=== PATIENT | male | born 1965 | race Caucasian/White ===

== ENCOUNTER 2022-10-26 14:42 | Inpatient (IN) ==
[2022-10-26] MEDS ORDERED: nitroGLYCERIN DRIP 25,000 MCG/250 ML BTL ONE (15:05)
[2022-10-26] MEDS ORDERED: Heparin 2 UNITS/ML 1000 mls 3,000 ML IV ONE (15:05)
[2022-10-26] MEDS ORDERED: Midazolam 5 mg/5 ml VIAL 1 mg/ml 5 ml VIAL (5 mg) ONE (15:05)
[2022-10-26] MEDS ORDERED: fentaNYL 100 mcg/2 ml 50 MCG/ML VIAL ONE (15:05)
[2022-10-26] MEDS ORDERED: Heparin 1,000 UNIT/ML 10 ml (10,000 UNITS) CATHLAB/DIALYSIS ONE (15:05)
[2022-10-26] MEDS ORDERED: VERAPAMIL 2.5 MG/ML 2 ML VIAL ** 5 mg/2 ml ONE (15:05)
[2022-10-26] MEDS ORDERED: Lidocaine 1% MPF 5 ML VIAL ONE (15:06)
[2022-10-26] MEDS ORDERED: Iohexol 350 (CONTRAST) 200 ML MDV IV ONE (15:06)
[2022-10-26 15:08] LABS: ABS Lymphocytes 1.3 10^3/uL (1.0-4.8); ABS Neutrophils 5.1 10^3/uL (1.5-7.6); ABS Nucleated RBC 0.01 10^3/ul; Eosinophil % 0.2 %; Hematocrit 42.9 % (38-53); Hemoglobin 15.2 g/dL (13.2-16.3); Lymphocyte % 17.5 %; Mean Corpuscular Hemoglobin 33.2 pg (27-33); Mean Corpuscular Hgb Conc 35.5 g/dL (31-36); Mean Corpuscular Volume 93.6 fL (80-97); Mean Platelet Volume 7.5 fL (7.5-11.2); Nucleated Red Blood Cells % 0.1 /100 WBC (0.0-0.4); Platelet Count 205 10^3/uL (150-450); Red Blood Count 4.59 10^6/uL (4.06-5.63); Red Cell Distribution Width 12.3 % (12-17); White Blood Count 7.5 10^3/uL (3.6-10.2)
[2022-10-26 15:21] LABS: INR 1.33 (0.88-1.18)
[2022-10-26 15:24] LABS: Albumin 4.6 g/dL (3.2-5.2); Albumin/Globulin Ratio 1.5 (1-3); Calcium 9.8 mg/dL (8.6-10.3); Creatinine, Serum 0.78 mg/dL (0.67-1.17); Globulin 3.1 g/dL (2-4); Potassium 3.8 mmol/L (3.5-5.0); Total Protein 7.7 g/dL (6.4-8.9); eGFR CKD-EPI 103.4 (>60)
[2022-10-26] MEDS ORDERED: Iohexol 350 (CONTRAST) 100 ML PAK IV ONE (15:54)
[2022-10-26] MEDS ORDERED: Eptifibatide IV (Load dose) 2 MG/ML 10 ml VIAL ONE ×2 (16:02→16:16)
[2022-10-26] MEDS ORDERED: Bivalirudin 250 MG VIAL ONE (16:02)
[2022-10-26 16:59] LABS: High Sensitivity Troponin 1 Hr 18815 pg/mL (<20)
[2022-10-26] MEDS ORDERED: Heparin DRIP 25,000 UNITS BAG 25,000 UNITS/500 ML BAG IV SCH (17:30)
[2022-10-26] MEDS ORDERED: NS 0.9% 1000 ml BAG 1,000 ML IV SCH (18:15)
[2022-10-26] MEDS: Heparin 5000 UNITS/ML 1 mL VIAL IV SCH (18:24)
[2022-10-27] MEDS: Heparin 5000 UNITS/ML 1 mL VIAL IV SCH (01:20)
[2022-10-27 06:18] LABS: ABS Lymphocytes 1.4 10^3/uL (1.0-4.8); ABS Monocytes 0.7 10^3/uL (0.0-1.1); ABS Neutrophils 5.6 10^3/uL (1.5-7.6); Hematocrit 39.8 % (38-53); Hemoglobin 14.3 g/dL (13.2-16.3); Lymphocyte % 18.2 %; Mean Corpuscular Hemoglobin 32.9 pg (27-33); Mean Corpuscular Hgb Conc 35.9 g/dL (31-36); Mean Corpuscular Volume 91.6 fL (80-97); Mean Platelet Volume 7.4 fL (7.5-11.2); Nucleated Red Blood Cells % 0.1 /100 WBC (0.0-0.4); Platelet Count 181 10^3/uL (150-450); Red Blood Count 4.35 10^6/uL (4.06-5.63); Red Cell Distribution Width 12.2 % (12-17); White Blood Count 7.7 10^3/uL (3.6-10.2)
[2022-10-27 06:35] LABS: Albumin 3.9 g/dL (3.2-5.2); Albumin/Globulin Ratio 1.3 (1-3); Calcium 8.9 mg/dL (8.6-10.3); Creatinine, Serum 0.78 mg/dL (0.67-1.17); Globulin 3.1 g/dL (2-4); Magnesium 1.5 mg/dL (1.9-2.7); Phosphorus 2.8 mg/dL (2.5-5.0); Potassium 4.1 mmol/L (3.5-5.0); Total Bilirubin 1.2 mg/dL (0.2-1.0); eGFR CKD-EPI 103.4 (>60)
[2022-10-27] MEDS ORDERED: Magnesium Sulf 4 GM/100 ML IV 4,000 MG/100 ML BAG IVPB ONE (08:36)
[2022-10-27] MEDS ORDERED: CMC:Ranolazine 500 mg TAB ER (NF) PO SCH (09:00)
[2022-10-27 09:17] LABS: HDL Cholesterol 52.6 mg/dL
[2022-10-27 10:17] VITALS: BP 106/75
== END 2022-10-27 10:30 | disposition short-term general hospital (02) | DRG 282 ==
LOC: ED 14:42 → CHICARD 15:55 → ICU 15:56